=== PATIENT | female | born 1990 | race Caucasian/White ===

== ENCOUNTER 2016-12-16 22:57 | Emergency (ER) | payer OTHER ==
[~2016-12-16 22:57] MED LIST: ABILIFY PO; BACTRIM DS TABL1 TA1 PO; CELEXA PO; CIPRO PO; CLARITIN10 M3 PO; CLEOCIN PO; CLEOCIN150 MG PO; CORTISPORI10 ML OTIC AU; ERY-TAB250 MG PO; FLONASE; FLONASE 0.05% N16 G1; GUAIFENESIN200 M1 PO; HYDROCODONE BIT1 TAB PO; IBUPROFEN800 MG PO; KEFLEX500 MG PO; LEXAPRO PO; MOTRIN400 MG PO; NAPROSYN500 MG PO; NAPROXEN PO; NO MEDICATIONS; PEPCID AC20 M2 PO; PHENERGAN25 MG PO; PRENATAL1 TA1 PO; PYRIDIUM PO; SUDAFED PO; SUDAFED30 M1 PO; TESSALON200 MG PO; TYLENOL #3 PO; VOLTAREN50 MG PO; VOLTAREN75 MG PO; ZITHROMAX PO; ZITHROMAX1 G/PKT PO; ZOFRAN ODT4 MG PO; ZOFRAN ODT4 MG SL; ZOFRAN ODT4 MG/UDTAB PO
[2016-12-16 23:35] LABS: URINE SOURCE CLEAN CATCH
[2016-12-16 23:38] LABS: URINE BILIRUBIN NEG (NEG); URINE BLOOD NEG (NEG); URINE COLOR YELLOW; URINE GLUCOSE NEG (NORM); URINE KETONE NEG (NEG); URINE LEUKOCYTE ESTERASE TRACE (NEG); URINE NITRATE NEG (NEG); URINE PROTEIN NEG (NEG); URINE SPECIFIC GRAVITY <=1.005 (1.003-1.035); URINE UROBILINOGEN 0.2 MG/DL (NORM)
[2016-12-16 23:43] LABS: URINE APPEARANCE SL HAZY
[2016-12-16 23:44] LABS: CULTURE INDICATED? NO; MICRO INDICATED? YES; URINE BACTERIA NEG (NEG); URINE RBC 0-2 /[HPF] (0-2); URINE SQUAMOUS EPITHELIAL CELL MODERATE /[HPF]; URINE TRANSITIONAL EPI CELLS FEW /[HPF]
[2016-12-16 23:45] LABS: URINE MUCUS PRESENT
[2016-12-16 23:48] LABS: AMPHETAMINE NEG (NEG); BARBITURATES NEG (NEG); BENZODIAZEPINES NEG (NEG); COCAINE NEG (NEG); MARIJUANA NEG (NEG); OPIATES POS (NEG); TRICYCLIC ANTIDEPRESSANTS NEG (NEG); U METHADONE NEG (NEG)
[2016-12-17 00:13] LABS: ALBUMIN SERUM 4.2 g/dL (3.5-5.0); ALKALINE PHOSPHATASE 46 U/L (32-92); ALT (SGPT) 11 U/L (10-40); AST (SGOT) 23 U/L (10-42); BILIRUBIN,TOTAL 0.4 mg/dL (0.2-2.0); BLOOD UREA NITROGEN 9 mg/dL (9-23); CALCIUM SERUM 8.4 mg/dL (8.4-10.2); CARBON DIOXIDE 30 mmol/L (22-31); CHLORIDE 100 mmol/L (100-111); CREATININE SERUM 0.5 mg/dL (0.6-1.4); GLOM FILT RATE Estimated ABOVE60 mL/min (>60); GLUCOSE FASTING 91 mg/dL (70-110); POTASSIUM 3.3 mmol/L (3.5-5.1); PROTEIN TOTAL SERUM 7.1 g/dL (6.0-8.3); SODIUM 136 mmol/L (135-145)
[2016-12-17 00:14] LABS: ACETAMINOPHEN <10 ug/mL; ALCOHOL BLOOD <5 mg/dL (0); BILIRUBIN, DIRECT <0.1 mg/dL (0.0-0.2); BILIRUBIN,INDIRECT 0.3 mg/dL (0.0-0.9)
== END 2016-12-17 00:33 | disposition home or self-care (01) ==
LOC: SED 22:57
PROVIDERS: Physician Assistant
DX: F11.10 Opioid abuse, uncomplicated (principal); Z86.14 Personal history of Methicillin resistant Staphylococcus aureus infection; Z79.52 Long term (current) use of systemic steroids; Z88.0 Allergy status to penicillin; Z88.5 Allergy status to narcotic agent
CPT/HCPCS: 36415; 80048; 80076; 80307; 81003; 99283; G0480

== ENCOUNTER 2017-02-24 12:31 | Emergency (ER) | payer OTHER ==
[2017-02-25] MEDS ORDERED: DIFLUCAN (22:05)
[2017-02-25] MEDS ORDERED: KEFLEX (22:06)
== END 2017-02-24 14:06 | disposition home or self-care (01) ==
LOC: SED 12:31
DX: K04.7 Periapical abscess without sinus (principal); K02.9 Dental caries, unspecified
CPT/HCPCS: 99282

== ENCOUNTER 2017-02-25 21:50 | Emergency (ER) | payer OTHER ==
[2017-02-25] MEDS ORDERED: DIFLUCAN (22:05)
[2017-02-25] MEDS ORDERED: KEFLEX (22:06)
== END 2017-02-25 23:31 | disposition home or self-care (01) ==
LOC: SED 21:50
DX: K04.7 Periapical abscess without sinus (principal); Z88.0 Allergy status to penicillin; Z98.890 Other specified postprocedural states; Z88.5 Allergy status to narcotic agent
CPT/HCPCS: 99282

== ENCOUNTER 2017-04-29 10:32 | Emergency (ER) | payer OTHER ==
--- NOTE | ~2017-04-29 | CT71 ---
[facility] A Service [facility] RADIOLOGY TEXT RESULTS PATIENT: NAVARRO ALEXANDRA LOCATION: SED : [birth year] UNIT #: [id number] AGE: [address]: DEVIN PEREZ SEX: F ORDER DR: [id number] [address] [address] [id number] MR#: [id number] Acc #: [id number] NAME: NAVARRO ALEXANDRA : 1990 SEX: F STUDY DATE/TIME: 04/29/2017 12:01 UNIT: SED ROOM: STUDY DESCRIPTION: CT Head Wo Contrast Attending Physician: Devin Perez Aprn Ordering Physician: Devin Perez Aprn Primary Care Physician: Flash Orosco Aprn MEDICAL IMAGING REPORT This report is preliminary unless electronic signature is present. EXAM CT scan of the head without contrast. INDICATIONS Swelling in back of head for 2 days with right-sided headache. COMPARISON 05/07/[address] exam was performed with one or more of the following radiation dose reduction techniques: automatic exposure control, adjustment of mA and/or kV according to patient size, and iterative reconstruction. FINDINGS Unenhanced images were obtained through the brain. The ventricles and subarachnoid spaces are normal. Slight asymmetry in the CSF spaces around the cerebellum is unchanged from 05/07/2014. The space on the right are more prominent. There is no mass or extraaxial fluid collection or hemorrhage. IMPRESSION No change. Normal unenhanced head CT scan. Dictated by... Lg Ordoñez M.D. THIS IS AN ELECTRONICALLY VERIFIED REPORT Lg Ordoñez M.D. at 04/30/2017 8:36 AM SARAH/[facility]rest[facility] A Service [facility] RADIOLOGY TEXT RESULTS PATIENT: NAVARRO ALEXANDRA LOCATION: SED : [birth year] UNIT #: [id number] AGE: [address]: DEVIN PEREZ SEX: F ORDER DR: TD: 04/29/2017 15:16 JOB #: [id number] MEDICAL IMAGING REPORT Page 1 of 1
[~2017-04-29 10:32] MED LIST changes: +DIFLUCAN; +KEFLEX
[2017-04-29] MEDS ORDERED: NO MEDICATIONS (10:44)
== END 2017-04-29 13:38 | disposition home or self-care (01) ==
LOC: SED 10:32
DX: R51 Headache (principal); R42 Dizziness and giddiness; Z88.0 Allergy status to penicillin; Z88.5 Allergy status to narcotic agent
CPT/HCPCS: 70450; 84703; 99284